=== PATIENT | female | born 1955 | race Caucasian/White ===

== ENCOUNTER 2017-11-24 10:23 | Emergency (ER) | payer OTHER ==
[~2017-11-24] VITALS: Ht 157.5 cm; Wt 94.3 kg
[2017-11-24 10:24] VITALS: BP 132/64
[2017-11-24] MEDS ORDERED: VITAMIN D5000 UNIT PO (10:29)
[2017-11-24] MEDS ORDERED: ZOLOFT100 MG PO (10:29)
[2017-11-24] MEDS ORDERED: LISINOPRIL-HCT1 EACH PO (10:29)
[2017-11-24] MEDS ORDERED: ZOCOR20 MG PO (10:29)
[2017-11-24] MEDS ORDERED: CENTRUM SILVER1 EAC4 PO (10:30)
[2017-11-24] MEDS ORDERED: CLINDAMYCIN HC300 MG PO (11:58)
[2017-11-24] MEDS ORDERED: TRAMADOL 50 MG50 MG PO (11:58)
== END 2017-11-24 12:54 | disposition home or self-care (01) ==
LOC: ER 10:23
DX: L02.811 Cutaneous abscess of head [any part, except face] (principal); L03.811 Cellulitis of head [any part, except face]; I10 Essential (primary) hypertension; E78.00 Pure hypercholesterolemia, unspecified; E78.5 Hyperlipidemia, unspecified; Z90.49 Acquired absence of other specified parts of digestive tract